=== PATIENT | female | born 1980 | race Caucasian/White ===

== ENCOUNTER 2017-05-27 11:47 | Day surgery (SDC) | payer MEDICAID ==
[2017-05-26 12:58] VITALS: BMI 30.4
[~2017-05-27] VITALS: Ht 165.1 cm; Wt 81.4 kg
[2017-05-27] VITALS (14 sets, daily range): BP systolic 119–143; BP diastolic 53–74; PULSE 52–80; RESP 10–18; Ht 165.1 cm; Wt 81.4 kg
[~2017-05-27 11:47] MED LIST: SOD CHLORIDE 0.9% 1,000 ML IV SCH
[2017-05-27] MEDS ORDERED: MEPERIDINE 25 MG INJ IV PRN (13:00)
[2017-05-27] MEDS ORDERED: DIPHENHYDRAMINE 50 MG INJ IV PRN (13:00)
[2017-05-27] MEDS ORDERED: ONDANSETRON 4 MG INJ IV PRN (13:00)
[2017-05-27] MEDS ORDERED: HYDROmorphONE (0.2 MG/ML) 10ML SYG IV PRN (13:00)
[2017-05-27] MEDS ORDERED: OXYCODONE/ACETAMINOPHEN (5/325) TAB PO PRN (13:00)
[2017-05-27] MEDS ORDERED: PROPOFOL 20 ML ONE (13:10)
[2017-05-27] MEDS ORDERED: LIDOCAINE 2% (SDV) 5 ML INJ ONE (13:10)
[2017-05-27] MEDS ORDERED: MIDAZOLAM 1 MG/ML 2 ML INJ ONE (13:11)
[2017-05-27] MEDS ORDERED: METOCLOPRAMIDE 10 MG INJ ONE (13:29)
[2017-05-27] MEDS ORDERED: DEXAMETHASONE 4 MG/ML 1 ML INJ ONE (13:29)
[2017-05-27] MEDS ORDERED: ONDANSETRON 4 MG INJ ONE (13:29)
[2017-05-27] MEDS ORDERED: FENTAnyl 50 MCG/ML VIAL ONE (13:29)
[2017-05-27] MEDS: FENTAnyl 50 MCG/ML VIAL IV PRN ×2 (14:31→14:40)
--- NOTE | 2017-05-27 16:34 | OPR ---
DATE OF OPERATION: 05/27/2017 PREOPERATIVE DIAGNOSIS: Left breast mass/abscess times 2. POSTOPERATIVE DIAGNOSIS: Left breast mass/abscess times 2. PROCEDURE: I and D of left breast abscess x2. ANESTHESIA: General. ANESTHESIOLOGIST: . SURGEON: Dr. Kody Vargas. INVESTMENT EXECUTIVE: None. INDICATIONS FOR PROCEDURE: Patient is a 36-year-old female presented with severe inflammation of her left breast. Two areas of fluctuance. The patient was seen in the office and counseled as to the need for definitive surgical incision and drainage. 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 She consented and was scheduled for surgery. OPERATIVE PROCEDURE: The patient was brought to the operating theater, placed under general anesthesia. The left breast was prepped and draped in usual sterile fashion. The regions of fluctuance were at the 11 o'clock and 2 o'clock location. Small incisions were made in both areas. Copious amounts of pus were obtained. Cultures were taken. The 11 o'clock area was then copiously irrigated with first saline, then hydrogen peroxide and Betadine. In a similar fashion the 2 o'clock lesion was also irrigated first with saline, then hydrogen peroxide and then Betadine. The wound cavities were explored. Additional necrotic tissue was debrided. Further irrigation took place. At this point, there was no evidence of ongoing bleeding. The breast was gently washed and a sterile dressing was applied. The patient tolerated procedure well. ESTIMATED BLOOD LOSS: Was approximately 10 cc. COMPLICATIONS: There were no complications. DISPOSITION: The patient was transported in stable condition to the recovery room. Dictated By: Kody Vargas MD /[email or web address] /Document#: [id number]
== END 2017-05-27 15:55 | disposition home or self-care (01) ==
LOC: SDS 11:47
PROVIDERS: ATTEND Surgery Surgical Oncology
DX: N61.1 Abscess of the breast and nipple (principal); N63 Unspecified lump in breast
CPT/HCPCS: 19020; 84703; 87070; J1100; J2175; J2250; J2405; J2765; J3010; Z7512; Z7610

== ENCOUNTER 2017-12-31 10:42 | Emergency (ER) | END 2017-12-31 16:24 | disposition home or self-care (01) ==